=== PATIENT | female | born 1955 | race Caucasian/White ===

== ENCOUNTER 2017-05-10 10:23 | Inpatient (IN) | payer OTHER, MEDICAID ==
[2017-05-08 12:21] LABS: Urine Bacteria NONE SEEN /hpf (None Seen); Urine Blood Negative /uL (Negative); Urine Mucus FEW (None Seen); Urine Specific Gravity 1.016 (1.001-1.035); Urine WBC 1 /hpf (0 - 5)
[2017-05-08 12:22] LABS: Basophils # (auto) 0 uL; Basophils % (auto) 0.4 % (0.0-2.0); Eosinophils # (auto) 0.1 uL; Hematocrit 43.4 % (36.0-46.0); Hemoglobin 14.1 g/dL (12.2-16.2); Lymphocytes % (auto) 36.3 % (10.0-50.0); Mean Corpuscular Hemoglobin 27.9 pg (28.0-32.0); Mean Corpuscular Hgb Conc. 32.4 g/dL (32.0-36.0); Mean Corpuscular Volume 86.2 fL (80.0-100.0); Monocytes # (auto) 0.7 uL; Monocytes % (auto) 8.5 % (0.0-12.0); Neutrophils # (auto) 4.5 uL; Neutrophils % (auto) 53.8 % (37.0-80.0); Platelet Count (auto) 247 10^3/uL (140-450); Red Blood Cells 5.04 10^6/uL (4.0-5.20); Red Cell Distribution Width 16.4 % (11.8-14.3); White Blood Cell 8.3 10^3/uL (4.4-10.8)
[2017-05-08 12:35] LABS: BUN/Creatinine Ratio 19.7; Calcium 9.2 mg/dL (8.5-10.1); Potassium 3.6 mmol/L (3.5-5.1)
[2017-05-08 12:36] LABS: INR 0.94 (0.9-1.15); Partial Thromboplastin Time 25.4 sec (22.64-33.71); Prothrombin Time 10.2 sec (9.37-12.3)
[~2017-05-10] VITALS: Ht 152.4 cm; Wt 77.4 kg
[~2017-05-10 10:23] MED LIST: AMLO5TAB2 PO; ATO40T PO; CYAN1TAB18 PO; FAM20T PO; HYDR-4683 PO; MAGN250T8 PO; METH-532 PO; TRAZ50TA2 PO; TRIA75TA55 PO
[2017-05-10] MEDS ORDERED: ceFOXitin 2GM/100ML 100 ML IV ONE (12:30)
[2017-05-10] MEDS ORDERED: LIDOCAINE 1% HCL (LOCAL ANESTH.) INJ 20ML MDV ONE (14:26)
[2017-05-10] MEDS ORDERED: BUPIVACAINE W/ EPINEPH 0.25% INJ 50ML MDV ONE (14:27)
[2017-05-10] MEDS ORDERED: BUPIVACAINE 0.25% INJ 50ML VIAL ONE (14:28)
[2017-05-10] MEDS ORDERED: MEPERIDINE HCL (50 MG/ML) 1 ML VIAL IV ONE (14:31)
[2017-05-10] MEDS ORDERED: PHENYLEPHRINE HCL 10 MG/ML VL IV ONE (14:31)
[2017-05-10] MEDS ORDERED: MIDAZOLAM HCL 1MG/1ML-2 ML VIAL ONE (14:35)
[2017-05-10] MEDS ORDERED: fentaNYL CITRATE 100 MCG/2 ML VL ONE (14:35)
[2017-05-10] MEDS ORDERED: DEXAMETHASONE SOD PHOS 10MG/1ML VIAL INJ ONE (14:38)
[2017-05-10] MEDS ORDERED: PROPOFOL 10 MG/ML 20 ML IV ONE (14:38)
[2017-05-10] MEDS ORDERED: ROCURONIUM 10MG/ML 10ML VIAL IV ONE (15:04)
[2017-05-10] MEDS ORDERED: hydrALAZINE HCL 20 MG/ML VL IV PRN (15:30)
[2017-05-10] MEDS ORDERED: METOCLOPRAMIDE HCL 5MG/ml INJ 2ml VIAL IV ONE (15:30)
[2017-05-10] MEDS ORDERED: NALOXONE HCL 0.4 MG/ML VIAL IV PRN (15:30)
[2017-05-10] MEDS: ONDANSETRON HCL 4 MG/2 ML VIAL IV ONE ×2 (15:30→17:00)
[2017-05-10] MEDS ORDERED: KETOROLAC TROMETH 30 MG/ML 1ML VIAL IV PRN (15:30)
[2017-05-10] MEDS ORDERED: NEOSTIGMINE 1 MG/ML INJ (10mg/10ML VIAL) ONE (15:56)
[2017-05-10] MEDS ORDERED: GLYCOPYRROLATE 0.2 MG/ML 1ML VIAL ONE (15:56)
[2017-05-10] MEDS ORDERED: traZODone HCL 50 MG TAB PO PRN (16:15)
[2017-05-10] MEDS ORDERED: diphenhdrAMINE HCL 50 MG/1 ML VL IV PRN (16:15)
[2017-05-10] MEDS ORDERED: ACETAMINOPHEN/CODEINE#3 (300/30mg) TAB PO PRN (16:15)
[2017-05-10] MEDS ORDERED: ONDANSETRON HCL 4 MG/2 ML VIAL IV PRN (16:15)
[2017-05-10] MEDS ORDERED: HYDROcodone-ACET 5/325MG TAB PO PRN (16:15)
[2017-05-10] MEDS ORDERED: HYDROmorphone HCL 2 MG/ML VL IV PRN (16:15)
[2017-05-10] MEDS ORDERED: amLODIPine BESYLATE 5 MG TAB PO PRN (16:15)
[2017-05-10] MEDS: MORPHINE SULFATE 4 MG/ML SYR/VIAL IV PRN ×3 (16:32→20:49)
[2017-05-10 17:30] LABS: BUN/Creatinine Ratio 12.6; Calcium 8.5 mg/dL (8.5-10.1); Potassium 4.1 mmol/L (3.5-5.1)
[2017-05-10] MEDS: D5W/SOD CHL 0.45% 1,000 ML IV SCH (18:07)
[2017-05-10] MEDS ORDERED: MORPHINE SULFATE 4 MG/ML SYR/VIAL IV PRN ×3 (18:15→18:30)
[2017-05-10 20:00] VITALS: BP 105/59
[2017-05-10] MEDS: CEFOXITIN SODIUM IV SCH (20:49)
[2017-05-10] MEDS: D5W 5% IV SCH (20:49)
[2017-05-10] MEDS: FAMOTIDINE 20 MG TAB PO SCH (21:21)
[2017-05-10] MEDS ORDERED: ATORVASTATIN 20 MG TAB PO SCH (22:00)
[2017-05-10 23:06] VITALS: BP 105/59
[2017-05-11] MEDS: D5W/SOD CHL 0.45% 1,000 ML IV SCH ×2 (00:03→08:03)
[2017-05-11] MEDS: MORPHINE SULFATE 4 MG/ML SYR/VIAL IV PRN ×3 (00:17→08:02)
[2017-05-11] MEDS: D5W 5% IV SCH (04:35)
[2017-05-11] MEDS: CEFOXITIN SODIUM IV SCH (04:35)
[2017-05-11 05:00] VITALS: BP 108/64
[2017-05-11 09:00] VITALS: BP 110/59
[2017-05-11] MEDS: FAMOTIDINE 20 MG TAB PO SCH (09:37)
[2017-05-11] MEDS ORDERED: TRIAMTERENE/HCTZ 37.5/25 MG CAP PO SCH (10:00)
== END 2017-05-11 12:00 | disposition home or self-care (01) | DRG 658 ==
LOC: SUR 10:23 → CENTRAL 10:24
PROVIDERS: ADMIT Urology; ATTEND Urology
PROC: 0TT14ZZ Resection of Left Kidney, Percutaneous Endoscopic Approach (ICD-10-PCS; principal; 2017-05-10 14:34)
DX: D41.00 Neoplasm of uncertain behavior of unspecified kidney (principal); E78.5 Hyperlipidemia, unspecified; G89.29 Other chronic pain; I10 Essential (primary) hypertension; K44.9 Diaphragmatic hernia without obstruction or gangrene; Z98.890 Other specified postprocedural states; Z80.9 Family history of malignant neoplasm, unspecified; Z82.49 Family history of ischemic heart disease and other diseases of the circulatory system
CPT/HCPCS: 36415; 80048; 81001; 85025; 85610; 85730; 86850; 86900; 86901; 87086; A4565; J0694; J1100; J2001; J2250; J2405; J2704; J3490; J7060

== ENCOUNTER → 2023-02-23 | Outpatient (CLI) | payer MEDICAID, OTHER ==
[~2023-02-23] VITALS: Ht 154.9 cm; Wt 73.5 kg
[~2023-02-23] MED LIST changes: +ADENOSINE 62 MG in GIVE UN-DILUTED 0 ML IV ONE; +AMLO1TAB22 PO; -AMLO5TAB2 PO; -CYAN1TAB18 PO; +CYAN1TAB19 PO; -FAM20T PO; +FAMO20TA10 PO; -HYDR-4683 PO; +HYDR-4833 PO; +TRAZ-227 PO; -TRAZ50TA2 PO
== END | disposition home or self-care (01) ==
LOC: XYW 09:22
PROVIDERS: ATTEND Internal Medicine
DX: I20.89 Other forms of angina pectoris (principal)
CPT/HCPCS: 78452; 93017; A9500; J0153

== ENCOUNTER 2023-04-25 06:55 | Day surgery (SDC) | payer OTHER ==
[2023-04-25] VITALS (7 sets, daily range): BP systolic 105–144; BP diastolic 50–72; PULSE 58–75; RESP 12–19; O2SAT 90–99
[~2023-04-25] VITALS: Ht 154.9 cm; Wt 73.0 kg
[~2023-04-25 06:55] MED LIST changes: +ACET300T58 PO; -ADENOSINE 62 MG in GIVE UN-DILUTED 0 ML IV ONE; +ASPI-543 PO; -ATO40T PO; +ATOR-507 PO; -CYAN1TAB19 PO; -HYDR-4833 PO; -MAGN250T8 PO; -METH-532 PO; -TRAZ-227 PO
[2023-04-25] MEDS ORDERED: IODIXANOL 320MG/ML 100ML BTL IV ONE ×2 (07:26→09:03)
[2023-04-25] MEDS ORDERED: LIDOCAINE 2%HCL (LOCAL ANESTH.) INJ 20ML MDV ONE (07:26)
[2023-04-25] MEDS ORDERED: MIDAZOLAM HCL 2MG/2ML 2ml VIAL (1mg/ml) ONE (08:13)
[2023-04-25] MEDS ORDERED: SODIUM CHL 0.9% 0 ML ONE (08:13)
[2023-04-25] MEDS ORDERED: HEPARIN SODIUM (PORCINE) 5000 UNITS/ML 1ML VIAL ONE (08:13)
[2023-04-25] MEDS ORDERED: ANGIOMAX 250 MG VIAL IV ONE (08:13)
[2023-04-25] MEDS ORDERED: fentaNYL CITRATE 100 MCG/2 ML VL ONE (08:13)
[2023-04-25] MEDS ORDERED: VERAPAMIL 2.5MG/ML INJ 2ML VIAL IV ONE (08:13)
== END 2023-04-25 11:55 | disposition home or self-care (01) ==
LOC: CATH 06:55
PROVIDERS: ATTEND Internal Medicine
DX: R07.9 Chest pain, unspecified (principal); I10 Essential (primary) hypertension; Z79.899 Other long term (current) drug therapy
CPT/HCPCS: 93458; C1769; C1887; C1894; J1644; J2250; J3010; J7030; Q9967; 99152